=== PATIENT | male | born 1990 | race Caucasian/White ===

== ENCOUNTER 2017-04-19 20:54 | Emergency (ER) | payer OTHER ==
[2017-04-19 21:06] VITALS: BP 148/92; PULSE 75; O2SAT 100
[2017-04-19] MEDS ORDERED: Rocephin 1000 MG INJ IM ONE (21:12)
[2017-04-19] MEDS ORDERED: TORAdol 30 mg Injection IM ONE (21:12)
[2017-04-19] MEDS ORDERED: CLEOCIN 150 MG CAPSULE PO ONE (21:13)
[2017-04-19] MEDS ORDERED: TORAdol 30 mg Injection ONE (21:15)
--- NOTE | 2017-04-19 21:15 | ERPHSYRPT ---
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 I think that I was bit by a spider. There was not anythign there yesterday. Sunday, I had the chills and shakes. That was only on sunday. Today, i have this red swollen area on my right area." Triage Nursing Assessment: aox3, breathing easy unlabored, skin pink warm dry with red area noted to right forearm that is hot to the touch, steady gait Physician History: TWO DAYS AGO PT THINKS HE WAS BITTEN BY A SPIDER ON THE MID LEFT FOREARM AND HAD A SUBJECTIVE FEVER AND CHILLS. FOR THE PAST 9 HOURS PT HAS HAD SWELLING AND HEAT IN THE AREA OF THE BITE. PT ALSO C/O DIARRHEA SINCE YESTERDAY. Allergies/Adverse Reactions: No Known Drug Allergies Allergy (Unverified 10/16/15 16:28) Home Medications: Levetiracetam [Keppra 500 mg ] 500 mg PO DAILY 04/19/17 [History] Hx Tetanus, Diphtheria Vaccination/Date Given: No Hx Influenza Vaccination/Date Given: No Hx Pneumococcal Vaccination/Date Given: No - Review of Systems Constitutional: Fever, Chills Abdominal/Gastrointestinal: Diarrhea Musculoskeletal: Other (BITE TO MID LEFT FOREARM WITH SWELLING AND HEAT) All Other Systems: Reviewed and Negative - Past Medical History Pertinent Past Medical History: Yes Neurological History: Epilepsy, Seizures ENT History: No Pertinent History Cardiac History: No Pertinent History Respiratory History: No Pertinent History Endocrine Medical History: No Pertinent History Musculoskeletal History: No Pertinent History GI Medical History: No Pertinent History - Past Surgical History Past Surgical History: No - Social History Smoking Status: Current every day smoker Exposure to second hand smoke: Yes Drug Use: none - Nursing Vital Signs Nursing Vital Signs: Initial Vital Signs Temperature 98.5 F 04/19/17 20:59 Pulse Rate 75 04/19/17 20:59 Respiratory Rate 14 04/19/17 20:59 Blood Pressure 148/92 04/19/17 20:59 O2 Sat by Pulse Oximetry 100 04/19/17 20:59 Pain Scale Pain Intensity 7 - Physical Exam General Appearance: alert Eye Exam: PERRL/EOMI Ears, Nose, Throat Exam: TMs normal, pharynx normal, moist mucous membranes Neck Exam: normal inspection Respiratory Exam: lungs clear Cardiovascular Exam: normal heart sounds Gastrointestinal/Abdomen Exam: soft, normal bowel sounds Back Exam: normal range of motion Extremity Exam: swelling (MILD EDEMA, ERYTHEMA AND WARMTH OF THE MID DORSAL ASPECT OF THE LEFT FOREARM ~ 6 CM DIAMETER WITHOUT FLUCTUATION.) Neurologic Exam: alert, cooperative SpO2 Interpretation: normal SpO2: 100 Oxygen Delivery: Room Air - Course Nursing assessment & vital signs reviewed: Yes Ordered Tests: Medication Summary Discontinued Medications Generic Name Dose Route Start Last Admin Trade Name Freq PRN Reason Stop Dose Admin Ceftriaxone Sodium 1,000 mg 04/19/17 21:12 Rocephin 1000 Mg Inj IM 04/19/17 21:13 STAT ONE Clindamycin HCl 300 mg 04/19/17 21:13 Cleocin 150 Mg Capsule PO 04/19/17 21:14 STAT ONE Ketorolac Tromethamine 60 mg 04/19/17 21:12 Toradol 30 Mg Injection IM 04/19/17 21:13 STAT ONE - Departure Time of Disposition: 21:26 Departure Disposition: Home Clinical Impression: CELLULITIS OF THE LEFT FOREARM Condition: Stable Critical Care Time: No Referrals: LEVI MORENO [Primary Care Provider] - Instructions: Cellulitis -- Adult Additional Instructions: FOLLOW UP WITH PRIVATE DOCTOR TOMORROW. ELEVATE LEFT FOREARM ABOVE HEART LEVEL FOR 24 HOURS. Prescriptions: Naproxen [Naprosyn] 500 mg PO [id number] PRN #20 tablet PRN Reason: Pain Clindamycin HCl 300 mg PO Q6H #40 capsule
[2017-04-19] MEDS ORDERED: XYLOCAINE 2% HCL 20 ML MDV ONE (21:16)
[2017-04-19] MEDS ORDERED: Rocephin 1000 MG INJ ONE (21:16)
[2017-04-19] MEDS ORDERED: CLEOCIN 150 MG CAPSULE ONE (21:16)
== END 2017-04-19 21:42 | disposition home or self-care (01) ==
LOC: ED 20:54
DX: L03.114 Cellulitis of left upper limb (principal)
CPT/HCPCS: 96372; 99284; J0696; J1885; A9270-GY